=== PATIENT | female | born 1970 | race Two or more races ===

== ENCOUNTER 2025-03-03 16:54 | Emergency (ER) | payer OTHER ==
[~2025-03-03] VITALS: Ht 167.6 cm; Wt 71.3 kg
--- NOTE | 2025-03-03 17:37 | ED.PDOC ---
Michela. trauma (HPI) HPI Comments A 55 YEAR OLD FEMALE PRESENTS TO THE ED WITH COMPLAINT OF LOWER AND MIDDLE BACK PAIN S/P FALL. PATIENT STATES SHE ACCIDENTALLY SLIPPED AND FELL BACKWARDS AND LANDED ON HER BACK. PATIENT REPORTS SHE IS NOW EXPERIENCING LOWER BACK PAIN AND MIDDLE BACK PAIN THAT IS WORSE WITH MOVEMENT. PATIENT DENIES SADDLE ANESTHESIA, URINARY INCONTINENCE, BOWEL INCONTINENCE, HEAD INJURY, NECK INJURY, LOC, FEVER, CHILLS, SHORTNESS OF BREATH, CHEST PAIN, ABDOMINAL PAIN, NAUSEA, VOMITING, HEADACHE, OR OTHER COMPLAINTS. NO OTHER SYMPTOMS OR MODIFYING FACTORS AT THIS TIME. PATIENT IS ALERT, ORIENTED X 4, AND HAS STEADY GAIT. Chief Complaint: Back Pain Time Seen by MD: 17:03 Reviewed notes: Nurses Notes, Medications, Allergies Allergies: Coded Allergies: NO KNOWN ALLERGIES (Unverified , 03/03/25) Home Meds Active Scripts Methocarbamol (Methocarbamol) 750 Mg Tab, 750 MG PO BID, #20 TAB Prov:COURT CARDENAS 03/03/25 Ibuprofen (Ibuprofen) 800 Mg Tab, 1 TAB PO TID, #30 TAB Prov:COURT CARDENAS 03/03/25 Information Source: Patient Mode of Arrival: Wheelchair Severity: Moderate Timing: Hours Duration: Since onset, Hours Prehospital treatment: None Location: Back Mechanism: Fall Associated signs and symtoms: None Past Medical History Past Medical History (Other): CEREBRAL PALSY Surgical History: Denies all surgeries PET GROOMER History: No Pertinent PET GROOMER History Family History Family History: Reviewed,noncontributory to illness Social History Smoker: Non-Smoker Alcohol: Denies ETOH Use Drugs: Denies Drug Use Lives In: Home Constitutional: denies: chills, diaphoresis, fatigue, fever, malaise, sweats, weakness, others EENTM: denies: blurred vision, double vision, ear bleeding, ear discharge, ear drainage, ear pain, ear ringing, eye pain, eye redness, hearing loss, mouth pain, mouth swelling, nasal discharge, nose bleeding, nose congestion, nose pain, photophobia, tearing, throat pain, throat swelling, voice changes, others Respiratory: denies: cough, hemoptysis, orthopnea, SOB at rest, shortness of breath, SOB with excertion, stridor, wheezing, others Cardiovascular: denies: chest pain, dizzy spells, diaphoresis, Dyspnea on exertion, edema, irregular heart beat, left arm pain, lightheadedness, palpitations, PND, syncope, others Gastrointestinal: denies: abdomen distended, abdominal pain, blood streaked bowels, constipated, diarrhea, dysphagia, difficulty swallowing, hematemesis, melena, nausea, poor appetite, poor fluid intake, rectal bleeding, rectal pain, vomiting, others Genitourinary: denies: abnormal vagina bleeding, burning, dyspareunia, dysuria, flank pain, frequency, hematuria, incontinence, pain, , vagina discharge, urgency, others Neurological: denies: dizziness, fainting, headache, left sided numbness, left sided weakness, numbness, paresthesia, pre-existing deficit, right sided numbness, right sided weakness, seizure, speech problems, tingling, tremors, weakness, others Musculoskeletal: reports: back pain (MIDDLE AND LOWER BACK PAIN), muscle pain; denies: gout, joint pain, joint swelling, muscle stiffness, neck pain, others Integumetry: denies: bruises, change in color, change in hair/nails, dryness, laceration, lesions, lumps, rash, wounds, others Allergic/Immunocompromised: denies: Difficulty Healing, Frequent Infections, Hives, Itching, others Hematologic/Lymphatic: denies: anemia, blood clots, easy bleeding, easy bruising, swollen glands, others Endocrine: denies: excessive hunger, excessive sweating, excessive thirst, excessive urination, flushing, intolerance to cold, intolerance to heat, unexplained weight gain, unexplained weight loss, others Psychiatric: denies: anxiety, bipolar disorder, depression, hopeless, panic disorder, schizophrenia, sleepless, suicidal, others All Other Systems: Reviewed and Negative Physical Exam General Appearance: No Apparent Distress, Normal HEENT: Normal ENT Inspection, PERRL/EOMI, Pharynx Normal, TMs Normal Neck: Full Range of Motion, Non-Tender, Normal, Normal Inspection Respiratory: Chest Non-Tender, Lungs Clear, No Accessory Muscle Use, No Respiratory Distress, Normal Breath Sounds Cardiovascular: No Edema, No JVD, No Murmur, No Gallop, Normal Peripheral Pulses, Regular Rate/Rhythm Breast Exam: Deferred Gastrointestinal: No Organomegaly, Non Tender, No Pulsatile Mass, Normal Bowel Sounds, Soft Genitalia: Deferred Pelvic: Deferred Rectal: Deferred Extremities: No calf tenderness, Normal capillary refill, Normal inspection, Normal range of motion, Non-tender, No pedal edema Musculoskeletal : Location: Bilateral Extremity Location: Back Apperance: Tenderness: Moderate (TENDERNESS AND MUSCLE SPASM ON MIDDLE AND LOWER BACK, NO BONY TENDERNESS, SWELLING AND DEFORMITY. ) Neurologic: Alert, ballistic technician II-XII nml as Tested, No Motor Deficits, Normal Affect, Normal Mood, No Sensory Deficits Cerebellar Function: Normal Reflexes: Normal Skin: Dry, Normal Color, Warm Peripheral Pulses: 2+ carotid (R), 2+ carotid (L) Lymphatic: No Adenopathy Was a procedure done? Was a procedure done?: No Differential Diagnosis Multiple Trauma: Closed Head Injury, Fractures, Spine Injury, Contusion, Other (BACK STRAIN) Neck Injury: N/A X-Ray, Labs, Meds, VS Vital Signs Date Time Temp Pulse Resp B/P (MAP) Pulse Ox O2 Delivery O2 Flow Rate FiO2 03/03/25 18:27 78 18 96 Room Air 03/03/25 18:27 98.0 78 18 131/89 (103) 96 98.0 03/03/25 16:56 99.1 96 16 121/72 81 99.1 Current Medications Medications (Trade) Dose Ordered Sig/Elizabeth Route Start Time Stop Time Status Last Admin Ketorolac Tromethamine (Toradol Injection) 60 mg ONCE ONCE IM 03/03/25 18:15 03/03/25 18:16 DC 03/03/25 18:17 PATIENT: KAUSHAL LINTONACCT: [id number]: [id number] : 1970 LOC: ER ROOM / BED: / AGE / SEX: 55 / F ADM STATUS: REG ER SERVICE 1615 ORDERING PHYSICIAN: COURT CARDENAS PROCEDURE(s): LUMB2 - LUMBAR SPINE 3 VIEW REASON: FALL ORDER NUMBER(s): [id number], ACCESSION NUMBER(s): [id number] CLINICAL INDICATION: FALL TECHNIQUE: 3 radiographic views of the lumbar spine were obtained. Comparison: None FINDINGS/IMPRESSION: Mild deformity L1 no prior studies for comparison. Age is indeterminate. There appear to be any displacement. ATED BY: ASYA OLSON Jr., DO DICTATED DATE/TIME: 03/03/251824 SIGNED BY: ASYA OLSON Jr., SIGNED DATE/TIME: 03/03/251824 CC: PATIENT: KAUSHAL LINTONACCT: [id number]: [id number] : 1970 LOC: ER ROOM / BED: / AGE / SEX: 55 / F ADM STATUS: REG ER SERVICE 34 ORDERING PHYSICIAN: COURT CARDENAS PROCEDURE(s): THOSP - SPINE THORACIC 2VIEW REASON: FALL ORDER NUMBER(s): [id number], ACCESSION NUMBER(s): [id number] CLINICAL HISTORY: FALL TECHNIQUE: 2 Views of the thoracic spine were obtained. COMPARISON: None FINDINGS: The alignment of the thoracic spine is normal. The vertebral body heights and intervertebral disc spaces are maintained. No acute fracture or dislocation is seen. IMPRESSION: NO ACUTE RADIOGRAPHIC ABNORMALITY OF THE THORACIC SPINE. ATED BY: SAQIB REYES MD DICTATED DATE/TIME: 03/03/251818 SIGNED BY: SAQIB REYES MD SIGNED DATE/TIME: 03/03/251818 CC: X-Ray, Labs, Meds, VS Comment EXTERNAL MEDICAL RECORDS REVIEWED: [NONE] INDEPENDENT HISTORIANS: [NONE] SOCIAL DETERMINANTS OF HEALTH: [NONE] LABS ORDERED: NONE REVIEWED AND INTERPRETED RESULTS: NONE IMAGING ORDERED: XR L-SPINE, XR T-SPINE TREATMENTS ORDERED: NORCO 5/325MG PO PROCEDURES PERFORMED: NONE CRITICAL CARE TIME: NONE I HAVE DISCUSSED THE PATIENT WITH THE ATTENDING PHYSICIAN DR. GAMBOA AND HE AGREES WITH THE PATIENT'S PLAN OF CARE AND DISPOSITION. BASED ON HISTORY OF PRESENT ILLNESS, AND PHYSICAL EXAM, PATIENT WILL BE DISCHARGED HOME. DISCUSSED PLAN FOR DISCHARGE HOME WITH RX [ULTRAM]. MEDICATION WARNINGS GIVEN. SHARED DECISION MAKING: PATIENT INSTRUCTED TO FOLLOW UP WITH PRIMARY CARE PROVIDER IN 1-2 DAYS FOR RE-EVALUATION OF SYMPTOMS. PATIENT VERBALIZES UNDERSTANDING TO RETURN TO ED FOR NEW OR WORSENING SYMPTOMS OR IF FOLLOW UP WITH PCP CANNOT BE OBTAINED. PATIENT FEELS COMFORTABLE GOING HOME AT THIS TIME. ALL QUESTIONS ADDRESSED AT TIME OF DISCHARGE. Images Reviewed?: Images reviewed and evaluated by me Time of 1ST Reevaluation: 18:30 Reevaluation 1ST: Improved Patient Education/Counseling: Diagnosis, Treatment, Need For Follow Up Family Education/Counseling: Diagnosis, Treatment, Need For Follow Up Medical Screening: No EMC Exist At This Time Departure 1 Departure Time of Disposition: 18:30 Impression: Primary Impression: Strain of mid-back Qualified Codes: S29.012A - Strain of muscle and tendon of back wall of thorax, initial encounter Additional Impressions: Low back strain Qualified Codes: S39.012A - Strain of muscle, fascia and tendon of lower back, initial encounter Status post fall Disposition: HOME / SELF CARE / HOMELESS Condition: Stable Additional Instructions: FOLLOW-UP WITH PCP IN 1 TO 2 DAYS. TAKE MEDICATIONS PRESCRIBED. RETURN TO ED FOR ANY NEW OR WORSENING SYMPTOMS. e-Prescriptions Methocarbamol (Methocarbamol) 750 Mg Tab 750 MG PO BID, #20 TAB Prov: COURT CARDENAS 03/03/25 Ibuprofen (Ibuprofen) 800 Mg Tab 1 TAB PO TID, #30 TAB Prov: COURT CARDENAS 03/03/25 Discharged With: Self, Relative Critical Care Note Critical Care Time?: No Stability Stability form required: No I personally scribed for COURT CARDENAS ([email or web address]) on 03/03/25 at 17:37. Electronically submitted by Tomás Alfaro ([email or web address]). I personally scribed for COURT CARDENAS ([email or web address]) on 03/03/25 at 17:47. Electronically submitted by Tomás Alfaro ([email or web address]). I personally scribed for COURT CARDENAS ([email or web address]) on 03/03/25 at 18:06. Electronically submitted by Tomás Alfaro (PathAR). COURT CARDENAS Mar 03, 2025 17:37
[2025-03-03] MEDS ORDERED: IBUP-1456 PO (18:11)
[2025-03-03] MEDS ORDERED: METH-1182 PO (18:11)
[2025-03-03] MEDS ORDERED: HYDROcodone-ACET 5/325MG TAB PO ONE (18:15)
[2025-03-03] MEDS: KETOROLAC TROMETH 60MG/2ML VIAL IM ONE (18:17)
--- NOTE | 2025-03-03 18:21 | DVH ---
CLINICAL HISTORY: FALL TECHNIQUE: 2 Views of the thoracic spine were obtained. COMPARISON: None FINDINGS: The alignment of the thoracic spine is normal. The vertebral body heights and intervertebral disc [facility] [place] are maintained. No acute fracture or dislocation is seen. IMPRESSION: NO ACUTE RADIOGRAPHIC ABNORMALITY OF THE THORACIC SPINE.
[2025-03-03 18:27] VITALS: BP 131/89; PULSE 78; RESP 18; TEMP 98; O2SAT 96
--- NOTE | 2025-03-03 18:27 | DVH ---
CLINICAL INDICATION: FALL TECHNIQUE: 3 radiographic views of the lumbar spine were obtained. Comparison: None FINDINGS/IMPRESSION: Mild deformity L1 no prior studies for comparison. Age is indeterminate. There appear to be any displacement.
== END 2025-03-03 18:34 | disposition home or self-care (01) ==
LOC: ER 16:54
DX: S29.012A Strain of muscle and tendon of back wall of thorax, initial encounter (principal); S39.012A Strain of muscle, fascia and tendon of lower back, initial encounter; W01.0XXA Fall on same level from slipping, tripping and stumbling without subsequent striking against object, initial encounter; X58.XXXA Exposure to other specified factors, initial encounter; Y93.89 Activity, other specified; Y92.89 Other specified places as the place of occurrence of the external cause; Y99.8 Other external cause status
CPT/HCPCS: 72070; 72100; 96372; 99284; J1885

== ENCOUNTER 2025-04-13 08:05 | Emergency (ER) | payer OTHER ==
[~2025-04-13] VITALS: Ht 167.6 cm; Wt 73.0 kg
[~2025-04-13 08:05] MED LIST: IBUP-1456 PO; METH-1182 PO
--- NOTE | 2025-04-13 08:16 | ECG ---
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
--- NOTE | 2025-04-13 08:24 | ED.PDOC ---
HPI Comments HPI: This is a 55 year old female presenting to the ED with chief complaint of chest pain. Patient reports that she has been experiencing substernal chest pain with associated SOB for the past week, however, today her pain moved with her epigastric region. Patient relays that she has also been constipated since yesterday. Patient denies any dizziness, fever, chills, N/V, headache, or cough. Initial Vitals BP: 136/84 HR: 76 RR: 20 O2: 99% Temp: 98.0F Past Medical History: Cerebral Palsy Past Surgical History: None Social History: Denies ETOH, smoking, and drug use. Medications: Reviewed Allergies: NKDA GRUBER: CP, ABD PAIN, PATIENT HAS DROVE HERSELF HERE. CEREBRAL PALSY. NO BOWEL MOVEMENT SINCE FRIDAY. HPI: Poor Historian. REVIEW OF SYSTEMS: CONSTITUTIONAL: Denies acute: fever, diaphoresis, chills, HEAD: Denies acute: headache, photophobia Eyes: Denies acute: Double vision, vision loss, eye pain, eye discharge. EARS: Denies acute: tinnitus, hearing loss, ear discharge, ear pain, THROAT: Denies acute: sore throat, swelling, difficulty swallowing , pain with swallowing, change in voice. NECK: Denies acute: neck pain, neck swelling, stiff neck. HEART: Denies acute : palpitations, LUNGS: Denies acute: SOB, wheezing, cough, hemoptysis ABDOMEN: Denies acute: Nausea, Vomiting, diarrhea, melena , hematemesis, hematochezia SKIN: Denies acute: rash, redness, lesions, itchiness. EXTREMITIES: Denies acute: calf pain, numbness, tingling, weakness, denies pain in extremity. Denies acute: Low back pain. Neuro: Denies acute: focal neurological deficit, motor or sensory focal neurological deficit, tremors, seizure like activity, confusion, dizziness, change in mental status, loss of bowel or bladder function, cauda equina like symptoms. : Denies acute: dysuria, hematuria, flank pain, increase in urinary frequency. PSYCH: Denies acute: hallucination, suicidal ideation, homicidal ideation. FEMALE: Denies acute: abnormal vaginal bleeding, foul odor, unusual discharge. PHYSICAL EXAM: General: ----mod----acute distress, awake and alert. Head: normocephalic, atraumatic. Neck: supple, trachea is midline, no swelling. Throat: Normal phonation. Eyes:, no erythema, no purulent discharge, no proptosis, no icterus. Heart: regular rate, regular rhythm, no significant murmur appreciated. Lungs: no apparent respiratory distress, Able to speak in full sentences. No wheezing, no rhonchi, no crackles. No stridors Clear to auscultation bilaterally. Abdomen: epigastric tender to palpation, non distended, soft, no guarding, no rebound, + bowel sounds. Neuro: Awake, Alert, oriented to name, self, situation, follows commands GCS=15. Speech is normal. Skin: no petechia, no purpura, no cyanosis, non-pale, not jaundice. Lower extremities: --no - Pitting edema no deformity, no focal swelling, no calf TTP. Makes eye contact. Face: no apparent facial droop. ED COURSE: DISCLAIMER: This medical document was created using an electronic medical record system with voice recognition software and computerized dictation system. Although this document has been carefully reviewed, there might still be some phonetic and typographical errors. Occasional wrong-word or "sound-alike" substitutions may have occurred due to the inherent limitations of voice recognition software. T hese areas are purely typographical due to imperfections of the software programs and do not reflect any compromise in the patient's medical care. Please read the chart carefully and recognize, using context, where these substitutions have occurred. Chief Complaint: Chest Pain Time Seen by MD: 08:22 Reviewed Notes: Medications, Allergies Allergies: Coded Allergies: NO KNOWN ALLERGIES (Unverified , 03/03/25) Home Meds Active Scripts Methocarbamol (Methocarbamol) 750 Mg Tab, 750 MG PO BID, #20 TAB Prov:COURT CARDENAS 03/03/25 Ibuprofen (Ibuprofen) 800 Mg Tab, 1 TAB PO TID, #30 TAB Prov:COURT CARDENAS 03/03/25 Information Source: Patient Mode of Arrival: Wheelchair EKG EKG : Pulse Rate (adult): 72 Cardiac Rhythm: NSR Comments T-wave inversion in lead 3 Was a procedure done? Was a procedure done?: No CP Differential Dx Differential Diagnosis: N/A Differential Diagnosis: Other (Ddx include but not limitied to gastritis, musculoskeletal pain, radiculopathy, atypical chest pain, dissection, aneurysm, ACS, unstable angina, hiatal hernia, GERD, anxiety, costochondritis, PE, pneumothroax, neoplasm, cardiac ischemia, drug abuse, anemia.) X-Ray, Labs, Meds, VS Vital Signs Date Time Temp Pulse Resp B/P (MAP) Pulse Ox O2 Delivery O2 Flow Rate FiO2 04/13/25 13:00 98.0 72 18 145/85 (105) 99 98.0 04/13/25 13:00 72 18 99 Room Air* 0 21 04/13/25 11:17 66 04/13/25 09:13 79 04/13/25 08:24 72 04/13/25 08:10 72 04/13/25 08:09 98.0 76 20 136/84 99 98.0 Lab Test 04/13/25 11:22 04/13/25 09:17 04/13/25 08:15 Range/Units Troponin I High Sensitivity 3 L 3 L 3 L </=34 ng/L Lipase 35 12-53 U/L White Blood Count 4.6 4.4-10.8 10^3/uL Red Blood Count 4.92 4.0-5.20 10^6/uL Hemoglobin 15.0 12.2-16.2 g/dL Hematocrit 44.6 36.0-46.0 % Mean Corpuscular Volume 90.7 80.0-100.0 fL Mean Corpuscular Hemoglobin 30.6 28.0-32.0 pg Mean Corpuscular Hemoglobin Concent 33.7 32.0-36.0 g/dL Red Cell Distribution Width 12.3 11.8-14.3 % Platelet Count 303 140-450 10^3/uL Mean Platelet Volume 7.3 6.9-10.8 fL Neutrophils (%) (Auto) 55.3 37.0-80.0 % Lymphocytes (%) (Auto) 34.8 10.0-50.0 % Monocytes (%) (Auto) 5.4 0.0-12.0 % Eosinophils (%) (Auto) 4.2 0.0-7.0 % Basophils (%) (Auto) 0.3 0.0-2.0 % Neutrophils # (Auto) 2.5 1.6-8.6 10 ^3/uL Lymphocytes # (Auto) 1.6 0.4-5.4 10 ^3/uL Monocytes # (Auto) 0.2 0-1.3 10 ^3/uL Eosinophils # (Auto) 0.2 0-0.8 10 ^3/uL Basophils # (Auto) 0 0-0.2 10 ^3/uL Nucleated Red Blood Cells 0.0 % Sodium Level 143 136-145 mmol/L Potassium Level 3.6 3.5-5.1 mmol/L Chloride Level 105 98-107 mmol/L Carbon Dioxide Level 27 20-31 mmol/L Anion Gap 11 5-15 Blood Urea Nitrogen 13 9-23 mg/dL Creatinine 0.76 0.550-1.02 mg/dL Glomerular Filtration Rate Calc 93 >90 mL/min BUN/Creatinine Ratio 17.1 10.0-20.0 Serum Glucose 83 74-106 mg/dL Lactic Acid Level 1.8 0.4-2.0 mmol/L Calcium Level 9.9 8.7-10.4 mg/dL Total Bilirubin 0.4 0.2-1.0 mg/dL Aspartate Amino Transferase (AST) 17 13-40 U/L Alanine Aminotransferase (ALT) 15 7-40 U/L Alkaline Phosphatase 95 46-116 U/L Total Protein 8.0 5.7-8.2 g/dL Albumin 4.6 3.2-4.8 g/dL [place] [address] Ph: [phone] DIAGNOSTIC IMAGING Diagnostic Imaging Report : [id number] Signed PATIENT: KAUSHAL LINTON ACCT: [id number] UNIT: [id number] : 1970 LOC: ER ROOM / BED: / AGE / SEX: 55 / F ADM STATUS: REG ER SERVICE 0 ORDERING PHYSICIAN: KISHA THAO DO PROCEDURE(s): ABPL - CT AB PEL WO CON-NO ORAL OR IV REASON: epig pain, ORDER NUMBER(s): [id number], ACCESSION NUMBER(s): [id number] Indication: epig pain, Comparison: Lumbar spine radiographs 03/03/2025. Technique: Helical axial scans were performed through the abdomen and pelvis without intravenous contrast. Subsequently, coronal and sagittal reformations were obtained. Dose lowering techniques have been used including automated exposure control and adjustment of mA and/or kv according to patient size. FINDINGS: Limited evaluation of the vasculature and solid organs due to lack of intravenous contrast. LUNGS BASES: Clear LIVER: Normal noncontrast appearance of the liver SPLEEN: Normal GALLBLADDER: Normal PANCREAS: Normal ADRENAL GLANDS: Normal KIDNEYS: No hydronephrosis or obstructing renal stone. GI: No bowel dilation or wall thickening. Normal appendix. LYMPH NODES: Normal VASCULAR STRUCTURES: Normal BLADDER: Normal PELVIC ORGAN: Normal FREE AIR OR FREE FLUID: None OSSEOUS STRUCTURES: T12 superior endplate compression fracture with less than 10% height loss. No significant retropulsion. This finding was also present on prior radiographs. SOFT TISSUES: Normal DLP is 421.2 mGy-cm. CTDI vol is 7.6 mGy. IMPRESSION: 1. T12 superior endplate compression fracture with less than 10% height loss also present on prior radiographs. No significant retropulsion. 2. No acute abnormality on noncontrast CT abdomen or pelvis. ATED BY: KENTON LITTLE MD DICTATED DATE/TIME: 04/13/25911 SIGNED BY: KENTON LITTLE MD SIGNED DATE/TIME: 04/13/25911 CC: [place] [address] Ph: [phone] DIAGNOSTIC IMAGING Diagnostic Imaging Report : [id number] Signed PATIENT: KAUSHAL LINTON ACCT: [id number] UNIT: [id number] : 1970 LOC: ER ROOM / BED: / AGE / SEX: 55 / F ADM STATUS: REG ER SERVICE 3 ORDERING PHYSICIAN: KISHA THAO DO PROCEDURE(s): CXRP - CHEST PORTABLE REASON: cp ORDER NUMBER(s): [id number], ACCESSION NUMBER(s): [id number] EXAM: XY CHEST PORTABLE HISTORY: cp COMPARISON: None TECHNIQUE: Portable AP view of the chest was performed. FINDINGS: No pneumothorax, consolidative infiltrates, or pulmonary edema. There is mild central peribronchial thickening. The heart is not enlarged. IMPRESSION: Mild reactive airways disease. The lungs are otherwise clear. ATED BY: ALEJANDRO MENDEZ MD DICTATED DATE/TIME: 04/13/2550 SIGNED BY: ALEJANDRO MENDEZ MD SIGNED DATE/TIME: 04/13/2550 CC: Time of 1ST Reevaluation: 09:22 Reevaluation 1ST: Unchanged Time of 2ND Reevaluation: 11:14 (The case was discussed with the [facility] admitting team (HPI, physical exam, labs and diagnostic tests that were available at the time of disposition, ED course, treatment plan) on the phone. They agreed to accept the patient to their service for further evaluation and treatment --- ABU) Patient Education/Counseling: Diagnosis, Treatment Family Education/Counseling: No Family Present Comments MDM: patient presented with the above HPI.---chest pain---workup was initiated. patient was found with the above mentioned diagnosis. the following medications were ordered: please refer to order lists of meds and tests obtained by myself Dr. Thao. Patient ED course and VS have been stabilized. Patient has been reassessed in the ED and remained in a stable condition. Pertinent incidental findings were discussed with the patient and/or family. Patient/family voices understanding and is agreeable with plan. Patient has been observed in the ED adequate length of time to insure improvement/stability. Escalation of care considered: Consideration of escalation to observation or admission Patient was transferred per insurance requirement for further evaluation and treatment of their presentation. All the reports of any imaging studies that were ordered by myself were reviewed by myself. Departure 1 Departure Time of Disposition: 09:00 Impression: Primary Impression: Chest pain Disposition: 02 SHORT TERM HOSPITAL Admit to: Tele Condition: Guarded Discharged With: Self Critical Care Note Critical Care Time?: No Heart Score Heart Score: Heart Score Response (Comments) Value History Moderate Suspicious [address]-Deviation 2 Age 45-64 1 Risk Factors 1 or 2 risk factors 1 Troponin Normal limit 0 Total 5 I personally scribed for KISHA THAO DO ([email or web address]) on 04/13/25 at 08:24. Electronically submitted by Frandy Garg ([email or web address]). I personally scribed for KISHA THAO DO ([email or web address]) on 04/13/25 at 09:01. Electronically submitted by Frandy Garg ([email or web address]). KISHA THAO DO Apr 13, 2025 08:24
[2025-04-13 08:42] LABS: Hematocrit 44.6 % (36.0-46.0); Hemoglobin 15.0 g/dL (12.2-16.2); Mean Corpuscular Hemoglobin 30.6 pg (28.0-32.0); Mean Corpuscular Volume 90.7 fL (80.0-100.0); Nucleated Red Blood Cells % 0.0 %
--- NOTE | 2025-04-13 08:53 | DVH ---
EXAM: XY CHEST PORTABLE HISTORY: cp COMPARISON: None TECHNIQUE: Portable AP view of the chest was performed. FINDINGS: No pneumothorax, consolidative infiltrates, or pulmonary edema. There is mild central peribronchial t hickening. The heart is not enlarged. IMPRESSION: Mild reactive airways disease. The lungs are otherwise clear.
[2025-04-13 08:57] LABS: Alanine Aminotransferase 15 U/L (7-40); Albumin 4.6 g/dL (3.2-4.8); Alkaline Phosphatase 95 U/L (46-116); Anion Gap 11 (5-15); BUN/Creatinine Ratio 17.1 (10.0-20.0); Bilirubin, Total 0.4 mg/dL (0.2-1.0); Blood Urea Nitrogen 13 mg/dL (9-23); Calcium 9.9 mg/dL (8.7-10.4); Carbon Dioxide 27 mmol/L (20-31); Chloride 105 mmol/L (98-107); Glucose 83 mg/dL (74-106); Potassium 3.6 mmol/L (3.5-5.1); Sodium 143 mmol/L (136-145); Total Protein 8.0 g/dL (5.7-8.2)
--- NOTE | 2025-04-13 09:14 | DVH ---
Indication: epig pain, Comparison: Lumbar spine radiographs 03/03/2025. Technique: Helical axial scans were performed through the abdomen and pelvis without intravenous cont rast. Subsequently, coronal and sagittal reformations were obtained. Dose lowering techniques have been used including automated exposure control and adjustment of mA and /or kv according to patient size. FINDINGS: Limited evaluation of the vasculature and solid organs due to lack of intravenous contrast. LUNGS BASES: Clear LIVER: Normal noncontrast appearance of the liver SPLEEN: Normal GALLBLADDER: Normal PANCREAS: Normal ADRENAL GLANDS: Normal KIDNEYS: No hydronephrosis or obstructing renal stone. GI: No bowel dilation or wall thickening. Normal appendix. LYMPH NODES: Normal VASCULAR STRUCTURES: Normal BLADDER: Normal PELVIC ORGAN: Normal FREE AIR OR FREE FLUID: None OSSEOUS STRUCTURES: T12 superior endplate compression fracture with less than 10% height loss. No si gnificant retropulsion. This finding was also present on prior radiographs. SOFT TISSUES: Normal DLP is 421.2 mGy-cm. CTDI vol is 7.6 mGy. IMPRESSION: 1. T12 superior endplate compression fracture with less than 10% height loss also present on prior ra diographs. No significant retropulsion. 2. No acute abnormality on noncontrast CT abdomen or pelvis.
[2025-04-13 13:00] VITALS: BP 145/85; PULSE 72; RESP 18; TEMP 98; O2SAT 99
--- NOTE | 2025-04-13 14:00 | ECG ---
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
--- NOTE | 2025-04-13 14:01 | ECG ---
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
== END 2025-04-13 13:27 | disposition short-term general hospital (02) ==
LOC: ER 08:09
DX: R07.89 Other chest pain (principal); G80.9 Cerebral palsy, unspecified; Z79.1 Long term (current) use of non-steroidal anti-inflammatories (NSAID); Z79.899 Other long term (current) drug therapy
CPT/HCPCS: 36415; 71045; 74176; 80053; 83605; 83690; 84484; 85025; 93005